=== PATIENT | female | born 1970 | race Two or more races ===

== ENCOUNTER 2020-09-06 13:32 | Outpatient (CLI) | payer OTHER | END 2020-09-06 13:43 | disposition home or self-care (01) | LOC: RAD 13:32 | PROVIDERS: ATTEND Orthopaedic Surgery | DX: S52.532D Colles' fracture of left radius, subsequent encounter for closed fracture with routine healing (principal); G56.02 Carpal tunnel syndrome, left upper limb ==

== ENCOUNTER 2020-11-01 09:55 | Outpatient (CLI) | payer OTHER | END 2020-11-01 10:04 | disposition home or self-care (01) | LOC: RAD 09:55 | PROVIDERS: ATTEND Orthopaedic Surgery | DX: S52.532D Colles' fracture of left radius, subsequent encounter for closed fracture with routine healing (principal) ==

== ENCOUNTER → 2020-11-29 | Outpatient (CLI) | payer OTHER | END | disposition home or self-care (01) | LOC: RAD 12:24 | DX: M25.512 Pain in left shoulder (principal); M75.122 Complete rotator cuff tear or rupture of left shoulder, not specified as traumatic ==

== ENCOUNTER 2020-12-20 12:06 | Outpatient (CLI) | payer OTHER | END 2020-12-20 12:13 | disposition home or self-care (01) | LOC: RAD 12:06 | PROVIDERS: ATTEND Orthopaedic Surgery | DX: S52.532D Colles' fracture of left radius, subsequent encounter for closed fracture with routine healing (principal) ==